=== PATIENT | female | born 2000 | race Hispanic/Latino ===

== ENCOUNTER 2022-12-16 03:14 | Inpatient (IN) | payer OTHER ==
[2022-12-16] MEDS ORDERED: hydrALAZINE 20 MG/ML VIAL SLOW IVP PRN ×2 (03:49→10:47)
[2022-12-16] MEDS ORDERED: Carboprost 250 MCG/ML AMP IM PRN (03:49)
[2022-12-16] MEDS ORDERED: Promethazine HCl 25 MG/ML VIAL IM PRN ×3 (03:49→10:47)
[2022-12-16] MEDS ORDERED: Butorphanol Tartrate 1 MG/ML VIAL SLOW IVP PRN (03:49)
[2022-12-16] MEDS ORDERED: Lidocaine 1% (PF) 30 ML VIAL SC PRN (03:49)
[2022-12-16] MEDS ORDERED: Acetaminophen 500 MG TAB PO PRN (03:49)
[2022-12-16] MEDS ORDERED: Misoprostol 200 MCG TAB PR PRN (03:49)
[2022-12-16] MEDS ORDERED: Methylergonovine 0.2 MG/ML VIAL IM PRN (03:49)
[2022-12-16] MEDS ORDERED: Diphenoxylate HCl/Atropine Tablet PO PRN (03:49)
[2022-12-16] MEDS ORDERED: Ondansetron PF 4 MG/2 ML Vial IVP PRN ×3 (03:49→10:47)
[2022-12-16] MEDS ORDERED: Ibuprofen 800 MG TAB PO PRN (03:49)
[2022-12-16] MEDS ORDERED: NS w/ Oxytocin 30 units 500 ML IV SCH (04:00)
[2022-12-16] MEDS ORDERED: Lactated Ringer's 1,000 ML IV SCH (04:00)
[2022-12-16 04:02] LABS: Hemoglobin 9.9 g/dL (12.0-15.5); Mean Corpuscular HGB CONC 31.3 g/dL (32.0-36.0); Mean Corpuscular Hemoglobin 24.8 pg (27.0-33.0); Mean Platelet Volume 12.7 fl (7.4-10.4); Platelet Count 166 10x3/uL (150-450); RBC Distribution Width 14.7 % (11.5-14.5); White Blood Cell (WBC) Count 12.4 10x3/uL (3.5-10.5)
[2022-12-16 04:32] LABS: Syphilis Antibody Nonreactive (Nonreactive); Syphilis Antibody Index 0.05 S/CO (<1.00 Non-Reactive)
[2022-12-16 04:34] LABS: HBSAg Index 0.15 S/CO (0-0.99); Hep B Surf Ag - L&D Non-Reactive S/CO (NonReactive)
[2022-12-16 04:35] VITALS: BMI 24.7
[2022-12-16] MEDS ORDERED: Fentanyl 2 mcg/Bup 0.1% Cadd 100 ML ONE (05:46)
[2022-12-16] MEDS ORDERED: Naloxone HCl 0.4 mg/ml Vial IVP PRN ×2 (06:20)
[2022-12-16] MEDS ORDERED: Lactated Ringer's 500 ML IV PRN (06:20)
[2022-12-16] MEDS ORDERED: ePHEDrine Sulfate 50 MG/10 ML VIAL SLOW IVP PRN (06:20)
[2022-12-16] MEDS ORDERED: Acetaminophen 325 MG TAB PO PRN (06:20)
[2022-12-16] MEDS ORDERED: diphenhydrAMINE 50 MG/ML VIAL IVP PRN (06:20)
[2022-12-16] MEDS ORDERED: Moisturizing Cream (Eucerin) 113 GM JAR TOP PRN (06:20)
[2022-12-16] MEDS ORDERED: Communication Order-Pharmacy FS SCH (06:30)
[2022-12-16] MEDS ORDERED: Fentanyl 2 mcg/Bupivacaine 0.1% Cassette 100 ML EPIDURAL SCH (06:30)
[2022-12-16] MEDS: NS w/ Oxytocin 30 units 500 ML IV SCH ×2 (07:45→08:20)
[2022-12-16] MEDS ORDERED: Bupivacaine/Epinephrine 0.25% 30 ML VIAL ONE (08:00)
[2022-12-16] MEDS ORDERED: Bisacodyl 10 MG SUPP PR PRN (10:47)
[2022-12-16] MEDS ORDERED: HYDROcodone/Acetaminophen 5/325 mg Tablet PO PRN ×2 (10:47)
[2022-12-16] MEDS ORDERED: Boostrix 0.5 ML (Tdap) VIAL (>/=7 yrs of age) IM ONE (10:47)
[2022-12-16] MEDS ORDERED: Lanolin Ointment 7 GM TUBE TOP PRN (10:47)
[2022-12-16] MEDS ORDERED: Milk Of Magnesia 30 ML UDCUP PO PRN (10:47)
[2022-12-16] MEDS ORDERED: Benzocaine-Menthol 82.5 ML CAN TOP PRN (10:47)
[2022-12-16] MEDS ORDERED: Docusate 100 MG CAP PO SCH (11:15)
[2022-12-16] MEDS ORDERED: Prenatal Vitamin 1 TAB PO SCH (11:15)
[2022-12-16] MEDS: Ibuprofen 800 MG TAB PO SCH ×2 (15:31→21:10)
[2022-12-16] MEDS: Ferrous Sulfate 325 MG TAB PO SCH (18:22)
[2022-12-16] MEDS: Docusate 100 MG CAP PO SCH (21:10)
[2022-12-17] MEDS: Ibuprofen 800 MG TAB PO SCH ×3 (05:37→21:45)
[2022-12-17] MEDS: Docusate 100 MG CAP PO SCH ×2 (08:42→21:45)
[2022-12-17] MEDS: Ferrous Sulfate 325 MG TAB PO SCH ×2 (08:42→16:21)
[2022-12-17] MEDS: Prenatal Vitamin 1 TAB PO SCH (08:43)
[2022-12-18] MEDS: Ibuprofen 800 MG TAB PO SCH ×2 (06:05→14:23)
[2022-12-18] MEDS: Prenatal Vitamin 1 TAB PO SCH (08:07)
[2022-12-18] MEDS: Docusate 100 MG CAP PO SCH (08:07)
[2022-12-18] MEDS: Ferrous Sulfate 325 MG TAB PO SCH (08:08)
[2022-12-18 09:11] VITALS: BP 110/63; TEMP 97.9
== END 2022-12-18 16:30 | disposition home or self-care (01) | DRG 806 ==
LOC: CSHLD/OP 03:14 → CSHLD 03:44 → CSHPP 10:35
PROVIDERS: ADMIT Family Medicine; ATTEND Family Medicine
PROC: 10E0XZZ Delivery of Products of Conception, External Approach (ICD-10-PCS; principal; 2022-12-16)
PROC: 0UQMXZZ Repair Vulva, External Approach (ICD-10-PCS; 2022-12-16)
DX: O70.0 First degree perineal laceration during delivery (principal); O72.1 Other immediate postpartum hemorrhage; Z37.0 Single live birth; Z3A.39 39 weeks gestation of pregnancy; Z79.899 Other long term (current) drug therapy
CPT/HCPCS: 51702; 85027; 86780; 86850; 86900; 86901; 87340; 99285; J2210; J2590